=== PATIENT | male | born 2000 | race Caucasian/White ===

== ENCOUNTER 2022-02-13 17:08 | Emergency (ER) | payer BC, SELFPAY | END 2022-02-13 18:52 | disposition home or self-care (01) | LOC: ERS 17:08 | DX: J20.9 Acute bronchitis, unspecified (principal); R59.1 Generalized enlarged lymph nodes; Z20.822 Contact with and (suspected) exposure to COVID-19 | CPT/HCPCS: 99283; U0003; U0005 ==